=== PATIENT | female | born 1970 | race Caucasian/White ===

== ENCOUNTER 2023-01-16 14:04 | Inpatient (IN) | payer OTHER ==
[~2023-01-16] VITALS: Ht 165.1 cm; Wt 145.6 kg
[2023-01-16 14:00] VITALS: BP 134/80
[2023-01-16] MEDS ORDERED: EPINEPHrine HCL 250 ML IV ONE (14:17)
[2023-01-16 15:09] LABS: Hemoglobin 10.6 g/dL (12.2-16.2)
[2023-01-16 15:12] LABS: Hematocrit 35.2 % (36.0-46.0); Mean Corpuscular Hemoglobin 24.2 pg (28.0-32.0); Mean Corpuscular Hgb Conc. 30.1 g/dL (32.0-36.0); Mean Corpuscular Volume 80.5 fL (80.0-100.0); Red Blood Cells 4.38 10^6/uL (4.0-5.20); Red Cell Distribution Width 16.1 % (11.8-14.3); White Blood Cell 13.4 10^3/uL (4.4-10.8)
[2023-01-16 15:22] LABS: Basophils % (manual) 0 (0.0-2.0); Blast Cells 0; Eosinophils % (manual) 0 (0-7); Metamyelocytes % 0; Promyelocytes % 0; Reactive Lymphocytes 0
[2023-01-16 15:27] LABS: Albumin 2.8 g/dL (3.4-5.0); Calcium 7.2 mg/dL (8.5-10.1); Magnesium 2.5 mg/dL (1.6-2.6)
[2023-01-16 15:32] LABS: Bilirubin, Total 0.6 mg/dL (0.2-1.0); Total Protein 5.9 g/dL (6.4-8.2)
[2023-01-16 15:40] LABS: INR 1.93 (0.9-1.15)
[2023-01-16 15:42] LABS: Partial Thromboplastin Time 74.3 sec (24.6-33.4)
[2023-01-16 15:43] LABS: Urine Bacteria FEW /hpf (None Seen); Urine Blood 3+ /uL (Negative); Urine Hyaline Cast FEW /lpf (0 - 2); Urine Mucus FEW (None Seen); Urine Specific Gravity 1.006 (1.001-1.035); Urine WBC 12 /hpf (0 - 5)
[2023-01-16] MEDS ORDERED: SODIUM BICARBONATE 8.4 % INJ 50ML VIAL IV ONE (15:45)
[2023-01-16] MEDS ORDERED: SODIUM BICARBONATE 50ML VIAL 50 ML in SOD CHL 0.45% 1,000 ML IV ONE (15:45)
[2023-01-16] MEDS: EPINEPHrine HCL 250 ML IV SCH (16:07)
[2023-01-16] MEDS: DOPamine 1600MCG/ML D5W 250 ML IV SCH (16:10)
[2023-01-16 16:15] LABS: BUN/Creatinine Ratio 4.2
[2023-01-16 16:16] LABS: Alcohol, Urine < 3.0 mg/dL (0-10); Amphetamine Screen, Urine NEGATIVE (NEGATIVE); Barbiturate Scree,Urine NEGATIVE (NEGATIVE); Benzodiazephine Screen, Urine NEGATIVE (NEGATIVE); Cannabinoid Screen, Urine NEGATIVE (NEGATIVE); Cocaine Screen, Urine NEGATIVE (NEGATIVE); Opiate Scree,Urine NEGATIVE (NEGATIVE); Phencyclidine Screen, Urine NEGATIVE (NEGATIVE)
[2023-01-16 16:39] LABS: Band Neutrophils % (manual) 32; Lymphocytes % (manual) 14 (10.0-50.0); Monocytes % (manual) 10 (0-12); Myelocytes % 1
[2023-01-16] MEDS ORDERED: levoFLOXacin 750MG 150 ML IV ONE (16:45)
[2023-01-16] MEDS ORDERED: IOHEXOL 350 MG/ML 100ML IJ ONE (16:49)
[2023-01-16] MEDS ORDERED: SODIUM CHL 3% 500 ML IV ONE (17:00)
[2023-01-16] MEDS ORDERED: NITROGLYCERIN 0.4 MG SL TAB SL PRN (17:15)
[2023-01-16] MEDS ORDERED: MORPHINE SULFATE INJ 2 MG/ml SYRG IV PRN (17:15)
[2023-01-16] MEDS ORDERED: PANTOPRAZOLE 40 MG/10 ML VIAL INJ IV ONE (17:15)
[2023-01-16 17:30] LABS: Lactic Acid w/Reflex 11.9 mmol/L (0.4-2.0)
[2023-01-16 17:45] LABS: Cholesterol 110 mg/dL (< 200)
[2023-01-16 17:47] LABS: HDL Cholesterol 68 mg/dL (40-59); LDL Cholesterol 47 mg/dL (< 100); Triglycerides 66 mg/dL (< 150)
[2023-01-16 18:46] VITALS: BP 95/43
[2023-01-16] MEDS: NOREPINEPHRINE 8 MG/250ML KIT 250 ML IV SCH (18:46)
[2023-01-16] MEDS: MIDAZOLAM DRIP 50 mg/50mL 50 ML IV SCH (18:47)
[2023-01-16] MEDS ORDERED: VANCOMYCIN PER PHARMACY 0 MG IV SCH (19:30)
[2023-01-16 20:01] VITALS: BP 102/64
[2023-01-16] MEDS: VANCOMYCIN 1GM/250ML 250 ML IV SCH (21:42)
[2023-01-16 22:10] VITALS: BP 122/56
[2023-01-16 22:23] LABS: BUN/Creatinine Ratio 14.1; Calcium 6.9 mg/dL (8.5-10.1); Potassium 3.6 mmol/L (3.5-5.1)
[2023-01-17] VITALS (12 sets, daily range): BP systolic 101–118; BP diastolic 46–56
[2023-01-17 01:01] LABS: BUN/Creatinine Ratio 12.3; Calcium 6.9 mg/dL (8.5-10.1); Potassium 3.9 mmol/L (3.5-5.1)
[2023-01-17] MEDS: DOPamine 1600MCG/ML D5W 250 ML IV SCH ×2 (01:38→12:38)
[2023-01-17] MEDS: ACETAMINOPHEN 650 MG RECT SUPP PR PRN ×3 (01:39→17:40)
[2023-01-17] MEDS ORDERED: SODIUM CHL 3% 500 ML IV ONE ×2 (03:00)
[2023-01-17 06:16] LABS: Eosinophils # (auto) 0 10 ^3/uL (0-0.8); Nucleated Red Blood Cells % 0.1 %
[2023-01-17 06:18] LABS: Basophils # (auto) 0.1 10 ^3/uL (0-0.2); Basophils % (auto) 0.2 % (0.0-2.0); Hematocrit 34.2 % (36.0-46.0); Hemoglobin 11.3 g/dL (12.2-16.2); Lymphocytes # (auto) 0.6 10 ^3/uL (0.4-5.4); Lymphocytes % (auto) 2.6 % (10.0-50.0); Mean Corpuscular Hgb Conc. 33.1 g/dL (32.0-36.0); Mean Corpuscular Volume 75.6 fL (80.0-100.0); Monocytes # (auto) 1.4 10 ^3/uL (0-1.3); Monocytes % (auto) 6.1 % (0.0-12.0); Neutrophils # (auto) 20.8 10 ^3/uL (1.6-8.6); Neutrophils % (auto) 91.1 % (37.0-80.0); Red Blood Cells 4.53 10^6/uL (4.0-5.20); White Blood Cell 22.9 10^3/uL (4.4-10.8)
[2023-01-17 06:44] LABS: Potassium 3.8 mmol/L (3.5-5.1)
[2023-01-17 06:59] LABS: Albumin 2.6 g/dL (3.4-5.0); BUN/Creatinine Ratio 14.9; Bilirubin, Total 0.6 mg/dL (0.2-1.0); Calcium 6.8 mg/dL (8.5-10.1); Total Protein 5.6 g/dL (6.4-8.2)
[2023-01-17] MEDS: VANCOMYCIN 1GM/250ML 250 ML IV SCH ×2 (07:02→16:39)
[2023-01-17] MEDS: PANTOPRAZOLE 40 MG/10 ML VIAL INJ IV SCH (10:51)
[2023-01-17] MEDS: CIPROFLOXACIN 400MG/200ML 200 ML IV SCH ×2 (10:51→22:31)
[2023-01-17 13:06] LABS: BUN/Creatinine Ratio 13.3; Calcium 6.6 mg/dL (8.5-10.1)
[2023-01-17 13:24] LABS: Potassium 4.6 mmol/L (3.5-5.1)
[2023-01-17] MEDS ORDERED: DIGO0.25 PO (13:27)
[2023-01-17] MEDS ORDERED: AMIO200T33 PO (13:27)
[2023-01-17] MEDS ORDERED: LISI20TA28 PO (13:30)
[2023-01-17] MEDS ORDERED: CARV12.544 PO (13:30)
[2023-01-17] MEDS ORDERED: SPIR25TA8 PO (13:30)
[2023-01-17] MEDS ORDERED: D5W 5% 500 ML IV ONE (14:30)
[2023-01-17] MEDS: EPINEPHrine HCL 250 ML IV SCH (14:45)
[2023-01-17] MEDS ORDERED: ATROPINE SULF 1 MG/10ml SYR IV ONE (16:48)
[2023-01-17] MEDS ORDERED: DOPamine 1600mCg/ml 400MG/250ml NSorD5 KIT/BAG IV ONE (16:48)
[2023-01-17] MEDS ORDERED: EPINEPHrine HCL 1 MG/10 ML SYRG IV ONE (16:48)
[2023-01-17] MEDS ORDERED: DEXTROSE (50%) 50ML SYRG IV ONE (16:48)
[2023-01-17 18:35] LABS: BUN/Creatinine Ratio 14.8; Calcium 6.1 mg/dL (8.5-10.1); Potassium 3.8 mmol/L (3.5-5.1)
[2023-01-17] MEDS: NOREPINEPHRINE 8 MG/250ML KIT 250 ML IV SCH (18:53)
[2023-01-17] MEDS: MIDAZOLAM DRIP 50 mg/50mL 50 ML IV SCH (18:53)
[2023-01-18] VITALS (13 sets, daily range): BP systolic 94–112; BP diastolic 47–66
[2023-01-18 01:34] LABS: BUN/Creatinine Ratio 16.4; Calcium 6.7 mg/dL (8.5-10.1)
[2023-01-18] MEDS ORDERED: SODIUM CHL 3% 500 ML IV ONE (02:45)
[2023-01-18] MEDS: VANCOMYCIN 1GM/250ML 250 ML IV SCH ×2 (03:01→15:21)
[2023-01-18] MEDS: DOPamine 1600MCG/ML D5W 250 ML IV SCH ×3 (03:21→21:00)
[2023-01-18] MEDS: ACETAMINOPHEN 650 MG RECT SUPP PR PRN (09:12)
[2023-01-18] MEDS: CIPROFLOXACIN 400MG/200ML 200 ML IV SCH ×2 (10:03→22:15)
[2023-01-18] MEDS: PANTOPRAZOLE 40 MG/10 ML VIAL INJ IV SCH (10:03)
[2023-01-18] MEDS ORDERED: AMIODARONE HCL 200 MG TAB PO SCH (11:45)
[2023-01-18] MEDS ORDERED: FUROSEMIDE 40 MG/4 ML VIAL IV ONE (11:45)
[2023-01-18] MEDS ORDERED: METOPROLOL TARTRATE 25 MG TAB PO SCH (11:45)
[2023-01-18] MEDS: SODIUM CHLORIDE 0.9% 1,000 ML IV SCH ×2 (12:43→22:47)
[2023-01-18] MEDS: EPINEPHrine HCL 250 ML IV SCH (13:12)
[2023-01-18 13:24] LABS: BUN/Creatinine Ratio 16.1; Calcium 6.6 mg/dL (8.5-10.1); Potassium 3.3 mmol/L (3.5-5.1)
[2023-01-18 14:18] LABS: Urine Blood 3+ /uL (Negative); Urine Specific Gravity 1.013 (1.001-1.035)
[2023-01-18 14:43] LABS: Protein, Urine 46.5 mg/dL (0.0-11.9)
[2023-01-18 17:43] LABS: BUN/Creatinine Ratio 16.4; Calcium 6.8 mg/dL (8.5-10.1); Potassium 3.3 mmol/L (3.5-5.1)
[2023-01-18] MEDS: MIDAZOLAM DRIP 50 mg/50mL 50 ML IV SCH (18:30)
[2023-01-18] MEDS: NOREPINEPHRINE 8 MG/250ML KIT 250 ML IV SCH (18:35)
[2023-01-18 18:58] LABS: Calcium 6.9 mg/dL (8.5-10.1); Potassium 3.3 mmol/L (3.5-5.1)
[2023-01-19] VITALS (69 sets, daily range): BP systolic 92–128; BP diastolic 45–78
[2023-01-19] MEDS: VANCOMYCIN 1GM/250ML 250 ML IV SCH ×2 (03:06→15:40)
[2023-01-19 06:34] LABS: Anion Gap 7 (5-15); BUN/Creatinine Ratio 15.3; Blood Urea Nitrogen 13 mg/dL (7-18); Calcium 7.3 mg/dL (8.5-10.1); Carbon Dioxide 24 mmol/L (21-32); Chloride 101 mmol/L (98-107); GFR African American 91 mL/min; GFR Non-African American 75 mL/min; Glucose 169 mg/dL (74-106); Magnesium 2.1 mg/dL (1.6-2.6); Potassium 3.4 mmol/L (3.5-5.1); Sodium 132 mmol/L (136-145)
[2023-01-19 06:38] LABS: Alanine Aminotransferase 84 U/L (13-56); Alkaline Phosphatase 33 U/L (45-117); Aspartate Aminotransferase 87 U/L (15-37); Bilirubin, Total 0.7 mg/dL (0.2-1.0); Total Protein 5.1 g/dL (6.4-8.2)
[2023-01-19 07:37] LABS: Basophils # (auto) 0.1 10 ^3/uL (0-0.2); Basophils % (auto) 0.5 % (0.0-2.0); Eosinophils # (auto) 0 10 ^3/uL (0-0.8); Eosinophils % (auto) 0.1 % (0.0-7.0); Hematocrit 30.8 % (36.0-46.0); Hemoglobin 10.1 g/dL (12.2-16.2); Lymphocytes # (auto) 0.7 10 ^3/uL (0.4-5.4); Lymphocytes % (auto) 5.2 % (10.0-50.0); Mean Corpuscular Hemoglobin 25.2 pg (28.0-32.0); Mean Corpuscular Hgb Conc. 32.6 g/dL (32.0-36.0); Mean Corpuscular Volume 77.1 fL (80.0-100.0); Monocytes # (auto) 1.1 10 ^3/uL (0-1.3); Monocytes % (auto) 7.8 % (0.0-12.0); Neutrophils # (auto) 11.8 10 ^3/uL (1.6-8.6); Neutrophils % (auto) 86.4 % (37.0-80.0); Nucleated Red Blood Cells % 0.1 %; Red Cell Distribution Width 16.9 % (11.8-14.3); White Blood Cell 13.7 10^3/uL (4.4-10.8)
[2023-01-19] MEDS: DOPamine 1600MCG/ML D5W 250 ML IV SCH ×3 (07:51→22:10)
[2023-01-19] MEDS: NOREPINEPHRINE 8 MG/250ML KIT 250 ML IV SCH (09:27)
[2023-01-19] MEDS: SODIUM CHLORIDE 0.9% 1,000 ML IV SCH (09:31)
[2023-01-19] MEDS: CIPROFLOXACIN 400MG/200ML 200 ML IV SCH (09:49)
[2023-01-19] MEDS: PANTOPRAZOLE 40 MG/10 ML VIAL INJ IV SCH (09:49)
[2023-01-19] MEDS: D5W 5% 1,000 ML IV SCH (11:07)
[2023-01-19] MEDS: EPINEPHrine HCL 250 ML IV SCH (14:45)
[2023-01-19 16:17] LABS: Anion Gap 5 (5-15); Carbon Dioxide 27 mmol/L (21-32); Chloride 109 mmol/L (98-107); Potassium 3.1 mmol/L (3.5-5.1); Sodium 141 mmol/L (136-145)
[2023-01-19 16:18] LABS: BUN/Creatinine Ratio 12.1; Blood Urea Nitrogen 11 mg/dL (7-18); Calcium 8.2 mg/dL (8.5-10.1); GFR African American 84 mL/min; GFR Non-African American 69 mL/min; Glucose 163 mg/dL (74-106)
[2023-01-19] MEDS: POTASSIUM CHL 20MEQ/100ML 100 ML IV SCH ×3 (17:30→22:29)
[2023-01-19] MEDS: MIDAZOLAM DRIP 50 mg/50mL 50 ML IV SCH (18:30)
[2023-01-19] MEDS: CEFEPIME 2 GM in SODIUM CHL 0.9% 50 ML IV SCH (21:52)
[2023-01-19] MEDS ORDERED: CIPROFLOXACIN 400MG/200ML 200 ML IV SCH (22:00)
[2023-01-20] VITALS (109 sets, daily range): BP systolic 75–123; BP diastolic 45–77
[2023-01-20] MEDS: VANCOMYCIN 1GM/250ML 250 ML IV SCH ×2 (02:31→14:35)
[2023-01-20] MEDS: NOREPINEPHRINE 8 MG/250ML KIT 250 ML IV SCH ×2 (03:05→12:42)
[2023-01-20 04:26] LABS: Basophils # (auto) 0 10 ^3/uL (0-0.2); Eosinophils # (auto) 0.2 10 ^3/uL (0-0.8); Eosinophils % (auto) 1.3 % (0.0-7.0); Mean Corpuscular Volume 79.9 fL (80.0-100.0); Monocytes # (auto) 1.1 10 ^3/uL (0-1.3); Neutrophils # (auto) 9.5 10 ^3/uL (1.6-8.6); Nucleated Red Blood Cells % 0.1 %
[2023-01-20 04:28] LABS: Basophils % (auto) 0.2 % (0.0-2.0); Hematocrit 31.7 % (36.0-46.0); Lymphocytes # (auto) 1.1 10 ^3/uL (0.4-5.4); Lymphocytes % (auto) 9.1 % (10.0-50.0); Mean Corpuscular Hemoglobin 25.1 pg (28.0-32.0); Mean Corpuscular Hgb Conc. 31.4 g/dL (32.0-36.0); Monocytes % (auto) 9.2 % (0.0-12.0); Neutrophils % (auto) 80.2 % (37.0-80.0); Red Blood Cells 3.97 10^6/uL (4.0-5.20); Red Cell Distribution Width 17.1 % (11.8-14.3); White Blood Cell 11.8 10^3/uL (4.4-10.8)
[2023-01-20 04:41] LABS: BUN/Creatinine Ratio 10.6; Calcium 8.8 mg/dL (8.5-10.1); Magnesium 2.7 mg/dL (1.6-2.6); Potassium 3.8 mmol/L (3.5-5.1)
[2023-01-20] MEDS: CEFEPIME 2 GM in SODIUM CHL 0.9% 50 ML IV SCH ×3 (05:35→21:35)
[2023-01-20] MEDS: ENOXAPARIN SOD 40 MG/0.4 ML SYRINGE SC SCH ×2 (09:13→21:36)
[2023-01-20] MEDS: PANTOPRAZOLE 40 MG/10 ML VIAL INJ IV SCH (09:13)
[2023-01-20] MEDS: FREE WATER NG SCH ×4 (10:00→21:35)
[2023-01-20] MEDS: D5W 5% 1,000 ML IV SCH ×2 (11:30→12:55)
[2023-01-20] MEDS: DOPamine 1600MCG/ML D5W 250 ML IV SCH (16:24)
[2023-01-20] MEDS: MIDAZOLAM DRIP 50 mg/50mL 50 ML IV SCH (18:30)
[2023-01-21] VITALS (105 sets, daily range): BP systolic 87–123; BP diastolic 37–70
[2023-01-21] MEDS: FREE WATER NG SCH ×6 (02:00→21:38)
[2023-01-21] MEDS: D5W 5% 1,000 ML IV SCH ×3 (02:15→15:35)
[2023-01-21] MEDS: VANCOMYCIN 1GM/250ML 250 ML IV SCH ×2 (03:11→14:59)
[2023-01-21] MEDS: DOPamine 1600MCG/ML D5W 250 ML IV SCH ×2 (03:15→14:06)
[2023-01-21 04:30] LABS: Basophils # (auto) 0 10 ^3/uL (0-0.2); Basophils % (auto) 0.4 % (0.0-2.0); Eosinophils # (auto) 0.5 10 ^3/uL (0-0.8); Eosinophils % (auto) 4.7 % (0.0-7.0); Hematocrit 29.6 % (36.0-46.0); Hemoglobin 9.4 g/dL (12.2-16.2); Lymphocytes # (auto) 1.3 10 ^3/uL (0.4-5.4); Lymphocytes % (auto) 11.1 % (10.0-50.0); Mean Corpuscular Hemoglobin 25.4 pg (28.0-32.0); Mean Corpuscular Hgb Conc. 31.6 g/dL (32.0-36.0); Mean Corpuscular Volume 80.4 fL (80.0-100.0); Monocytes # (auto) 1.2 10 ^3/uL (0-1.3); Monocytes % (auto) 10.5 % (0.0-12.0); Neutrophils # (auto) 8.2 10 ^3/uL (1.6-8.6); Neutrophils % (auto) 73.3 % (37.0-80.0); Nucleated Red Blood Cells % 0.1 %; Red Blood Cells 3.69 10^6/uL (4.0-5.20); Red Cell Distribution Width 17.4 % (11.8-14.3); White Blood Cell 11.3 10^3/uL (4.4-10.8)
[2023-01-21 04:43] LABS: Albumin 1.7 g/dL (3.4-5.0); BUN/Creatinine Ratio 9.3; Calcium 8.3 mg/dL (8.5-10.1); Magnesium 2.6 mg/dL (1.6-2.6); Potassium 3.8 mmol/L (3.5-5.1)
[2023-01-21 04:46] LABS: Bilirubin, Total 0.6 mg/dL (0.2-1.0); Total Protein 5.2 g/dL (6.4-8.2)
[2023-01-21] MEDS: CEFEPIME 2 GM in SODIUM CHL 0.9% 50 ML IV SCH ×3 (05:54→21:38)
[2023-01-21] MEDS: PANTOPRAZOLE 40 MG/10 ML VIAL INJ IV SCH (09:09)
[2023-01-21] MEDS: ENOXAPARIN SOD 40 MG/0.4 ML SYRINGE SC SCH ×2 (09:10→21:39)
[2023-01-21] MEDS: MIDAZOLAM DRIP 50 mg/50mL 50 ML IV SCH (18:21)
[2023-01-21] MEDS: NOREPINEPHRINE 8 MG/250ML KIT 250 ML IV SCH ×2 (18:21→19:35)
[2023-01-22] VITALS (103 sets, daily range): BP systolic 82–148; BP diastolic 35–122
[2023-01-22] MEDS: D5W 5% 1,000 ML IV SCH ×2 (00:11→13:00)
[2023-01-22] MEDS: FREE WATER NG SCH ×6 (01:54→22:00)
[2023-01-22] MEDS: DOPamine 1600MCG/ML D5W 250 ML IV SCH ×3 (02:04→20:00)
[2023-01-22 04:32] LABS: Basophils # (auto) 0 10 ^3/uL (0-0.2); Basophils % (auto) 0.4 % (0.0-2.0); Hematocrit 29.6 % (36.0-46.0); Lymphocytes # (auto) 1.3 10 ^3/uL (0.4-5.4); Mean Corpuscular Hgb Conc. 30.6 g/dL (32.0-36.0)
[2023-01-22 04:34] LABS: Eosinophils # (auto) 0.7 10 ^3/uL (0-0.8); Lymphocytes % (auto) 11.4 % (10.0-50.0); Mean Corpuscular Hemoglobin 25.1 pg (28.0-32.0); Mean Corpuscular Volume 82.2 fL (80.0-100.0); Monocytes % (auto) 9.1 % (0.0-12.0); Neutrophils # (auto) 8.2 10 ^3/uL (1.6-8.6); Neutrophils % (auto) 73.1 % (37.0-80.0); Nucleated Red Blood Cells % 0.1 %; Red Cell Distribution Width 17.7 % (11.8-14.3); White Blood Cell 11.2 10^3/uL (4.4-10.8)
[2023-01-22 04:55] LABS: BUN/Creatinine Ratio 11.9; Calcium 8.4 mg/dL (8.5-10.1); Magnesium 2.8 mg/dL (1.6-2.6)
[2023-01-22] MEDS: CEFEPIME 2 GM in SODIUM CHL 0.9% 50 ML IV SCH ×2 (06:09→16:48)
[2023-01-22] MEDS: ENOXAPARIN SOD 40 MG/0.4 ML SYRINGE SC SCH ×2 (09:41→22:00)
[2023-01-22] MEDS: PANTOPRAZOLE 40 MG/10 ML VIAL INJ IV SCH (09:41)
[2023-01-22] MEDS: NOREPINEPHRINE 8 MG/250ML KIT 250 ML IV SCH ×2 (14:38→20:00)
[2023-01-22] MEDS: VANCOMYCIN 1GM/250ML 250 ML IV SCH (14:50)
[2023-01-22] MEDS: MIDAZOLAM DRIP 50 mg/50mL 50 ML IV SCH (18:30)
[2023-01-23] VITALS (105 sets, daily range): BP systolic 70–137; BP diastolic 21–69
[2023-01-23] MEDS: FREE WATER NG SCH ×5 (02:00→18:17)
[2023-01-23] MEDS: D5W 5% 1,000 ML IV SCH ×2 (03:00→15:28)
[2023-01-23 03:34] LABS: Hemoglobin 8.9 g/dL (12.2-16.2); Monocytes # (auto) 0.8 10 ^3/uL (0-1.3); White Blood Cell 8.2 10^3/uL (4.4-10.8)
[2023-01-23 03:37] LABS: Basophils # (auto) 0.1 10 ^3/uL (0-0.2); Basophils % (auto) 1.1 % (0.0-2.0); Eosinophils # (auto) 0.5 10 ^3/uL (0-0.8); Hematocrit 28.7 % (36.0-46.0); Lymphocytes % (auto) 12.7 % (10.0-50.0); Mean Corpuscular Hemoglobin 25.7 pg (28.0-32.0); Mean Corpuscular Hgb Conc. 31.1 g/dL (32.0-36.0); Mean Corpuscular Volume 82.8 fL (80.0-100.0); Monocytes % (auto) 9.8 % (0.0-12.0); Neutrophils # (auto) 5.8 10 ^3/uL (1.6-8.6); Neutrophils % (auto) 70.4 % (37.0-80.0); Nucleated Red Blood Cells % 0.1 %; Red Blood Cells 3.47 10^6/uL (4.0-5.20); Red Cell Distribution Width 18.4 % (11.8-14.3)
[2023-01-23 04:03] LABS: BUN/Creatinine Ratio 13.4; Calcium 7.8 mg/dL (8.5-10.1); Magnesium 2.4 mg/dL (1.6-2.6); Potassium 3.8 mmol/L (3.5-5.1)
[2023-01-23] MEDS: CEFEPIME 2 GM in SODIUM CHL 0.9% 50 ML IV SCH ×2 (05:28→18:16)
[2023-01-23] MEDS: DOPamine 1600MCG/ML D5W 250 ML IV SCH ×2 (09:30→19:51)
[2023-01-23] MEDS: PANTOPRAZOLE 40 MG/10 ML VIAL INJ IV SCH (09:42)
[2023-01-23] MEDS: ENOXAPARIN SOD 40 MG/0.4 ML SYRINGE SC SCH ×2 (09:43→23:25)
[2023-01-23] MEDS: MIDAZOLAM DRIP 50 mg/50mL 50 ML IV SCH (18:30)
[2023-01-23] MEDS: NOREPINEPHRINE 8 MG/250ML KIT 250 ML IV SCH (18:54)
[2023-01-24] VITALS (104 sets, daily range): BP systolic 53–132; BP diastolic 28–72
[2023-01-24] MEDS: VANCOMYCIN 1GM/250ML 250 ML IV SCH (02:49)
[2023-01-24 03:51] LABS: Basophils # (auto) 0.1 10 ^3/uL (0-0.2); Eosinophils # (auto) 0.3 10 ^3/uL (0-0.8); Lymphocytes # (auto) 1.1 10 ^3/uL (0.4-5.4); Lymphocytes % (auto) 15.6 % (10.0-50.0); Mean Corpuscular Hemoglobin 25.4 pg (28.0-32.0); Mean Corpuscular Hgb Conc. 30.9 g/dL (32.0-36.0); Mean Corpuscular Volume 82.2 fL (80.0-100.0); Monocytes # (auto) 0.6 10 ^3/uL (0-1.3); Monocytes % (auto) 8.4 % (0.0-12.0); Neutrophils # (auto) 4.7 10 ^3/uL (1.6-8.6); Nucleated Red Blood Cells % 0.1 %; Red Blood Cells 3.53 10^6/uL (4.0-5.20); Red Cell Distribution Width 18.5 % (11.8-14.3); White Blood Cell 6.7 10^3/uL (4.4-10.8)
[2023-01-24 04:13] LABS: Calcium 8.3 mg/dL (8.5-10.1); Potassium 3.8 mmol/L (3.5-5.1)
[2023-01-24 04:15] LABS: BUN/Creatinine Ratio 16.3
[2023-01-24] MEDS: D5W 5% 1,000 ML IV SCH ×2 (05:00→21:25)
[2023-01-24] MEDS: FREE WATER NG SCH ×4 (05:44→17:48)
[2023-01-24] MEDS: CEFEPIME 2 GM in SODIUM CHL 0.9% 50 ML IV SCH ×2 (05:44→17:48)
[2023-01-24] MEDS: DOPamine 1600MCG/ML D5W 250 ML IV SCH ×2 (09:11→17:48)
[2023-01-24] MEDS: ENOXAPARIN SOD 40 MG/0.4 ML SYRINGE SC SCH ×2 (10:37→21:32)
[2023-01-24] MEDS: PANTOPRAZOLE 40 MG/10 ML VIAL INJ IV SCH (10:37)
[2023-01-24] MEDS: MIDAZOLAM DRIP 50 mg/50mL 50 ML IV SCH (17:48)
[2023-01-25] VITALS (105 sets, daily range): BP systolic 77–132; BP diastolic 33–70
[2023-01-25 04:39] LABS: Potassium 3.4 mmol/L (3.5-5.1)
[2023-01-25 04:40] LABS: Basophils # (auto) 0 10 ^3/uL (0-0.2); Eosinophils # (auto) 0.3 10 ^3/uL (0-0.8); Lymphocytes # (auto) 0.9 10 ^3/uL (0.4-5.4); Monocytes # (auto) 0.5 10 ^3/uL (0-1.3)
[2023-01-25 04:43] LABS: Basophils % (auto) 0.4 % (0.0-2.0); Eosinophils % (auto) 4.7 % (0.0-7.0); Hematocrit 26.2 % (36.0-46.0); Lymphocytes % (auto) 14.3 % (10.0-50.0); Mean Corpuscular Hemoglobin 25.3 pg (28.0-32.0); Mean Corpuscular Hgb Conc. 30.5 g/dL (32.0-36.0); Mean Corpuscular Volume 82.9 fL (80.0-100.0); Monocytes % (auto) 8.1 % (0.0-12.0); Neutrophils # (auto) 4.5 10 ^3/uL (1.6-8.6); Neutrophils % (auto) 72.5 % (37.0-80.0); Red Blood Cells 3.16 10^6/uL (4.0-5.20); Red Cell Distribution Width 18.5 % (11.8-14.3); White Blood Cell 6.3 10^3/uL (4.4-10.8)
[2023-01-25 04:46] LABS: Albumin 1.1 g/dL (3.4-5.0); BUN/Creatinine Ratio 15.4; Bilirubin, Total 1.2 mg/dL (0.2-1.0); Calcium 7.1 mg/dL (8.5-10.1); Magnesium 2.1 mg/dL (1.6-2.6); Phosphorus 2.5 mg/dL (2.5-4.90); Total Protein 4.5 g/dL (6.4-8.2)
[2023-01-25] MEDS: CEFEPIME 2 GM in SODIUM CHL 0.9% 50 ML IV SCH ×2 (05:45→18:14)
[2023-01-25] MEDS: FREE WATER NG SCH ×2 (05:45)
[2023-01-25] MEDS: DOPamine 1600MCG/ML D5W 250 ML IV SCH ×2 (05:56→22:33)
[2023-01-25] MEDS ORDERED: VANCOMYCIN 1GM/250ML 250 ML IV SCH (09:00)
[2023-01-25] MEDS: PANTOPRAZOLE 40 MG/10 ML VIAL INJ IV SCH (10:50)
[2023-01-25] MEDS: D5W/SOD CHL 0.45% 1,000 ML IV SCH ×2 (10:50→23:50)
[2023-01-25] MEDS: ENOXAPARIN SOD 40 MG/0.4 ML SYRINGE SC SCH ×2 (10:51→22:34)
[2023-01-25] MEDS: MIDAZOLAM DRIP 50 mg/50mL 50 ML IV SCH (18:30)
[2023-01-25] MEDS: NOREPINEPHRINE 8 MG/250ML KIT 250 ML IV SCH (22:33)
[2023-01-25 22:49] LABS: Urine Bacteria FEW /hpf (None Seen); Urine Blood 3+ /uL (Negative); Urine Specific Gravity 1.006 (1.001-1.035); Urine WBC 7 /hpf (0 - 5)
[2023-01-25 22:55] LABS: INR 1.11 (0.9-1.15)
[2023-01-25 23:01] LABS: Albumin 1.4 g/dL (3.4-5.0); BUN/Creatinine Ratio 15.6; Bilirubin, Direct 0.2 mg/dL (0-0.2); Calcium 8.5 mg/dL (8.5-10.1); Magnesium 2.5 mg/dL (1.6-2.6); Phosphorus 3.1 mg/dL (2.5-4.90); Potassium 4.1 mmol/L (3.5-5.1)
[2023-01-25 23:06] LABS: Bilirubin, Total 0.4 mg/dL (0.2-1.0); Total Protein 5.3 g/dL (6.4-8.2)
[2023-01-25 23:07] LABS: Lymphocytes % (auto) 13.9 % (10.0-50.0); Neutrophils % (auto) 74.3 % (37.0-80.0); White Blood Cell 8.9 10^3/uL (4.4-10.8)
[2023-01-25 23:08] LABS: Basophils # (auto) 0.1 10 ^3/uL (0-0.2); Basophils % (auto) 0.8 % (0.0-2.0); Eosinophils # (auto) 0.4 10 ^3/uL (0-0.8); Eosinophils % (auto) 4.1 % (0.0-7.0); Hematocrit 29.6 % (36.0-46.0); Hemoglobin 9.2 g/dL (12.2-16.2); Lymphocytes # (auto) 1.2 10 ^3/uL (0.4-5.4); Mean Corpuscular Hemoglobin 25.1 pg (28.0-32.0); Mean Corpuscular Hgb Conc. 31.1 g/dL (32.0-36.0); Mean Corpuscular Volume 80.6 fL (80.0-100.0); Monocytes # (auto) 0.6 10 ^3/uL (0-1.3); Monocytes % (auto) 6.9 % (0.0-12.0); Neutrophils # (auto) 6.6 10 ^3/uL (1.6-8.6); Nucleated Red Blood Cells % 0.2 %; Red Blood Cells 3.68 10^6/uL (4.0-5.20)
[2023-01-26] VITALS (108 sets, daily range): BP systolic 1–146; BP diastolic 42–72
[2023-01-26] MEDS: DOPamine 1600MCG/ML D5W 250 ML IV SCH ×2 (02:36→18:47)
[2023-01-26 04:57] LABS: INR 1.13 (0.9-1.15)
[2023-01-26 05:08] LABS: Albumin 1.5 g/dL (3.4-5.0); BUN/Creatinine Ratio 15.8; Calcium 8.5 mg/dL (8.5-10.1); Magnesium 2.5 mg/dL (1.6-2.6); Potassium 3.8 mmol/L (3.5-5.1); Total Protein 5.3 g/dL (6.4-8.2)
[2023-01-26 05:12] LABS: Bilirubin, Direct 0.2 mg/dL (0-0.2); Bilirubin, Total 0.4 mg/dL (0.2-1.0); Phosphorus 3.5 mg/dL (2.5-4.90)
[2023-01-26 05:18] LABS: Urine Bacteria FEW /hpf (None Seen); Urine Blood 2+ /uL (Negative); Urine Specific Gravity 1.006 (1.001-1.035); Urine WBC 11 /hpf (0 - 5)
[2023-01-26 05:25] LABS: Basophils # (auto) 0 10 ^3/uL (0-0.2); Eosinophils # (auto) 0.4 10 ^3/uL (0-0.8); Eosinophils % (auto) 4.2 % (0.0-7.0); Monocytes # (auto) 0.8 10 ^3/uL (0-1.3)
[2023-01-26 05:27] LABS: Basophils % (auto) 0.4 % (0.0-2.0); Hematocrit 29.2 % (36.0-46.0); Hemoglobin 9.2 g/dL (12.2-16.2); Lymphocytes # (auto) 1.4 10 ^3/uL (0.4-5.4); Lymphocytes % (auto) 15.2 % (10.0-50.0); Mean Corpuscular Hemoglobin 25.6 pg (28.0-32.0); Mean Corpuscular Hgb Conc. 31.7 g/dL (32.0-36.0); Mean Corpuscular Volume 80.9 fL (80.0-100.0); Monocytes % (auto) 8.3 % (0.0-12.0); Neutrophils # (auto) 6.6 10 ^3/uL (1.6-8.6); Neutrophils % (auto) 71.9 % (37.0-80.0); Nucleated Red Blood Cells % 0.2 %; Red Cell Distribution Width 18.6 % (11.8-14.3); White Blood Cell 9.2 10^3/uL (4.4-10.8)
[2023-01-26] MEDS: CEFEPIME 2 GM in SODIUM CHL 0.9% 50 ML IV SCH ×2 (05:53→18:44)
[2023-01-26 09:37] LABS: Basophils # (auto) 0 10 ^3/uL (0-0.2); Eosinophils # (auto) 0.4 10 ^3/uL (0-0.8); Hemoglobin 9.1 g/dL (12.2-16.2); Mean Corpuscular Volume 80.7 fL (80.0-100.0); Nucleated Red Blood Cells % 0.1 %; White Blood Cell 8.7 10^3/uL (4.4-10.8)
[2023-01-26 09:40] LABS: Basophils % (auto) 0.5 % (0.0-2.0); Eosinophils % (auto) 4.6 % (0.0-7.0); Hematocrit 29.7 % (36.0-46.0); Lymphocytes # (auto) 1.1 10 ^3/uL (0.4-5.4); Lymphocytes % (auto) 12.6 % (10.0-50.0); Mean Corpuscular Hemoglobin 24.7 pg (28.0-32.0); Mean Corpuscular Hgb Conc. 30.6 g/dL (32.0-36.0); Monocytes # (auto) 0.8 10 ^3/uL (0-1.3); Neutrophils # (auto) 6.4 10 ^3/uL (1.6-8.6); Neutrophils % (auto) 73.3 % (37.0-80.0); Red Blood Cells 3.68 10^6/uL (4.0-5.20); Red Cell Distribution Width 18.7 % (11.8-14.3)
[2023-01-26 09:58] LABS: INR 1.15 (0.9-1.15)
[2023-01-26] MEDS ORDERED: SODIUM BICARBONATE 8.4 % INJ 50ML VIAL IV ONE (10:00)
[2023-01-26 10:14] LABS: Potassium 4.1 mmol/L (3.5-5.1)
[2023-01-26] MEDS: PANTOPRAZOLE 40 MG/10 ML VIAL INJ IV SCH (10:17)
[2023-01-26] MEDS: ENOXAPARIN SOD 40 MG/0.4 ML SYRINGE SC SCH ×2 (10:17→22:00)
[2023-01-26 10:18] LABS: Urine WBC None Seen /hpf (0 - 5)
[2023-01-26 10:24] LABS: Albumin 1.5 g/dL (3.4-5.0); BUN/Creatinine Ratio 16.4; Bilirubin, Direct 0.2 mg/dL (0-0.2); Bilirubin, Total 0.4 mg/dL (0.2-1.0); Magnesium 2.6 mg/dL (1.6-2.6); Phosphorus 3.7 mg/dL (2.5-4.90); Total Protein 4.4 g/dL (6.4-8.2)
[2023-01-26 10:54] LABS: Calcium 8.5 mg/dL (8.5-10.1)
[2023-01-26 10:57] LABS: Urine Bacteria NONE SEEN /hpf (None Seen); Urine Blood 2+ /uL (Negative); Urine Specific Gravity 1.006 (1.001-1.035)
[2023-01-26] MEDS: D5W/SOD CHL 0.45% 1,000 ML IV SCH (13:42)
[2023-01-26 15:20] LABS: Basophils # (auto) 0.1 10 ^3/uL (0-0.2); Eosinophils # (auto) 0.4 10 ^3/uL (0-0.8); Hemoglobin 9.3 g/dL (12.2-16.2); Lymphocytes # (auto) 1.2 10 ^3/uL (0.4-5.4)
[2023-01-26 15:22] LABS: Basophils % (auto) 0.7 % (0.0-2.0); Eosinophils % (auto) 4.8 % (0.0-7.0); Hematocrit 30.7 % (36.0-46.0); Lymphocytes % (auto) 14.2 % (10.0-50.0); Mean Corpuscular Hemoglobin 24.3 pg (28.0-32.0); Mean Corpuscular Hgb Conc. 30.3 g/dL (32.0-36.0); Mean Corpuscular Volume 80.1 fL (80.0-100.0); Monocytes # (auto) 0.6 10 ^3/uL (0-1.3); Monocytes % (auto) 7.3 % (0.0-12.0); Neutrophils # (auto) 6.4 10 ^3/uL (1.6-8.6); Nucleated Red Blood Cells % 0.1 %; Red Blood Cells 3.83 10^6/uL (4.0-5.20); Red Cell Distribution Width 18.7 % (11.8-14.3); White Blood Cell 8.8 10^3/uL (4.4-10.8)
[2023-01-26 15:32] LABS: Urine Amorphous Crystal MOD /hpf (None Seen); Urine Bacteria FEW /hpf (None Seen); Urine Blood 3+ /uL (Negative); Urine Mucus FEW (None Seen); Urine Specific Gravity 1.006 (1.001-1.035); Urine WBC 6 /hpf (0 - 5)
[2023-01-26 16:00] LABS: Albumin 1.4 g/dL (3.4-5.0); Bilirubin, Direct 0.2 mg/dL (0-0.2); Bilirubin, Total 0.4 mg/dL (0.2-1.0); Calcium 8.7 mg/dL (8.5-10.1); Magnesium 2.5 mg/dL (1.6-2.6); Phosphorus 3.7 mg/dL (2.5-4.90); Total Protein 5.5 g/dL (6.4-8.2)
[2023-01-26 16:10] LABS: Potassium 3.7 mmol/L (3.5-5.1)
[2023-01-26 16:27] LABS: INR 1.15 (0.9-1.15)
[2023-01-26] MEDS: NOREPINEPHRINE 8 MG/250ML KIT 250 ML IV SCH (16:37)
[2023-01-26] MEDS: VASOPRESSIN 20 UNITS in SODIUM CHL 0.9% 99 ML IV SCH (17:45)
[2023-01-26] MEDS: MIDAZOLAM DRIP 50 mg/50mL 50 ML IV SCH (18:30)
[2023-01-26 21:27] LABS: Eosinophils # (auto) 0.4 10 ^3/uL (0-0.8); Hemoglobin 9.2 g/dL (12.2-16.2); Monocytes # (auto) 0.8 10 ^3/uL (0-1.3)
[2023-01-26 21:29] LABS: Basophils # (auto) 0.1 10 ^3/uL (0-0.2); Basophils % (auto) 0.6 % (0.0-2.0); Eosinophils % (auto) 4.7 % (0.0-7.0); Hematocrit 29.7 % (36.0-46.0); Lymphocytes # (auto) 1.2 10 ^3/uL (0.4-5.4); Lymphocytes % (auto) 13.2 % (10.0-50.0); Mean Corpuscular Hgb Conc. 30.9 g/dL (32.0-36.0); Mean Corpuscular Volume 80.7 fL (80.0-100.0); Monocytes % (auto) 8.5 % (0.0-12.0); Neutrophils # (auto) 6.7 10 ^3/uL (1.6-8.6); Nucleated Red Blood Cells % 0.1 %; Red Blood Cells 3.68 10^6/uL (4.0-5.20); White Blood Cell 9.1 10^3/uL (4.4-10.8)
[2023-01-26 21:41] LABS: INR 1.16 (0.9-1.15)
[2023-01-26 21:42] LABS: Urine Amorphous Crystal FEW /hpf (None Seen); Urine Bacteria FEW /hpf (None Seen); Urine Blood 3+ /uL (Negative); Urine Specific Gravity 1.006 (1.001-1.035); Urine WBC <1 /hpf (0 - 5)
[2023-01-26 22:00] LABS: Albumin 1.4 g/dL (3.4-5.0); Calcium 8.5 mg/dL (8.5-10.1); Magnesium 2.5 mg/dL (1.6-2.6); Potassium 3.9 mmol/L (3.5-5.1)
[2023-01-26 22:09] LABS: BUN/Creatinine Ratio 14.3; Bilirubin, Direct 0.2 mg/dL (0-0.2); Bilirubin, Total 0.7 mg/dL (0.2-1.0); Phosphorus 3.9 mg/dL (2.5-4.90); Total Protein 4.5 g/dL (6.4-8.2)
[2023-01-27] VITALS (108 sets, daily range): BP systolic 88–183; BP diastolic -2–91
[2023-01-27] MEDS: DOPamine 1600MCG/ML D5W 250 ML IV SCH ×3 (00:18→22:20)
[2023-01-27] MEDS: D5W/SOD CHL 0.45% 1,000 ML IV SCH ×2 (02:30→15:42)
[2023-01-27] MEDS: NOREPINEPHRINE 8 MG/250ML KIT 250 ML IV SCH ×3 (02:30→15:44)
[2023-01-27 04:37] LABS: Urine Bacteria FEW /hpf (None Seen); Urine Blood 2+ /uL (Negative); Urine Specific Gravity 1.007 (1.001-1.035); Urine WBC 4 /hpf (0 - 5)
[2023-01-27 04:38] LABS: Basophils % (auto) 0.5 % (0.0-2.0); Hemoglobin 9.2 g/dL (12.2-16.2); Nucleated Red Blood Cells % 0.1 %
[2023-01-27 04:41] LABS: Basophils # (auto) 0.1 10 ^3/uL (0-0.2); Eosinophils # (auto) 0.4 10 ^3/uL (0-0.8); Eosinophils % (auto) 4.5 % (0.0-7.0); Hematocrit 29.5 % (36.0-46.0); Lymphocytes # (auto) 1.4 10 ^3/uL (0.4-5.4); Lymphocytes % (auto) 14.3 % (10.0-50.0); Mean Corpuscular Hemoglobin 25.6 pg (28.0-32.0); Mean Corpuscular Hgb Conc. 31.3 g/dL (32.0-36.0); Mean Corpuscular Volume 81.7 fL (80.0-100.0); Monocytes # (auto) 0.9 10 ^3/uL (0-1.3); Monocytes % (auto) 8.9 % (0.0-12.0); Neutrophils # (auto) 7.1 10 ^3/uL (1.6-8.6); Neutrophils % (auto) 71.8 % (37.0-80.0); Red Cell Distribution Width 18.9 % (11.8-14.3); White Blood Cell 9.9 10^3/uL (4.4-10.8)
[2023-01-27 04:48] LABS: INR 1.18 (0.9-1.15)
[2023-01-27 04:52] LABS: BUN/Creatinine Ratio 15.9; Calcium 8.9 mg/dL (8.5-10.1); Potassium 3.7 mmol/L (3.5-5.1)
[2023-01-27] MEDS: VASOPRESSIN 20 UNITS in SODIUM CHL 0.9% 99 ML IV SCH ×2 (04:52→15:59)
[2023-01-27 05:02] LABS: Albumin 1.4 g/dL (3.4-5.0); BUN/Creatinine Ratio 16.9; Bilirubin, Direct 0.2 mg/dL (0-0.2); Bilirubin, Total 0.4 mg/dL (0.2-1.0); Calcium 8.5 mg/dL (8.5-10.1); Magnesium 2.5 mg/dL (1.6-2.6); Phosphorus 4.3 mg/dL (2.5-4.90); Potassium 4.2 mmol/L (3.5-5.1); Total Protein 4.5 g/dL (6.4-8.2)
[2023-01-27] MEDS: CEFEPIME 2 GM in SODIUM CHL 0.9% 50 ML IV SCH ×2 (05:43→17:46)
[2023-01-27] MEDS ORDERED: SODIUM BICARBONATE 8.4 % INJ 50ML VIAL IV ONE ×2 (09:00→19:30)
[2023-01-27 09:35] LABS: Basophils # (auto) 0.1 10 ^3/uL (0-0.2); Basophils % (auto) 0.6 % (0.0-2.0); Eosinophils # (auto) 0.5 10 ^3/uL (0-0.8); Hemoglobin 9.3 g/dL (12.2-16.2); Lymphocytes # (auto) 1.4 10 ^3/uL (0.4-5.4); Monocytes # (auto) 0.9 10 ^3/uL (0-1.3); White Blood Cell 10.5 10^3/uL (4.4-10.8)
[2023-01-27 09:38] LABS: Eosinophils % (auto) 4.3 % (0.0-7.0); Hematocrit 30.6 % (36.0-46.0); Mean Corpuscular Hemoglobin 24.8 pg (28.0-32.0); Mean Corpuscular Hgb Conc. 30.5 g/dL (32.0-36.0); Mean Corpuscular Volume 81.4 fL (80.0-100.0); Monocytes % (auto) 8.7 % (0.0-12.0); Neutrophils # (auto) 7.7 10 ^3/uL (1.6-8.6); Neutrophils % (auto) 73.4 % (37.0-80.0); Nucleated Red Blood Cells % 0.1 %; Red Blood Cells 3.76 10^6/uL (4.0-5.20); Red Cell Distribution Width 18.6 % (11.8-14.3)
[2023-01-27 09:54] LABS: INR 1.17 (0.9-1.15); Partial Thromboplastin Time 37.4 sec (24.6-33.4)
[2023-01-27] MEDS: PANTOPRAZOLE 40 MG/10 ML VIAL INJ IV SCH (09:55)
[2023-01-27] MEDS: ENOXAPARIN SOD 40 MG/0.4 ML SYRINGE SC SCH ×2 (09:55→22:05)
[2023-01-27 10:01] LABS: Albumin 1.4 g/dL (3.4-5.0); BUN/Creatinine Ratio 15.5; Bilirubin, Direct 0.2 mg/dL (0-0.2); Bilirubin, Total 0.4 mg/dL (0.2-1.0); Magnesium 2.4 mg/dL (1.6-2.6); Phosphorus 4.5 mg/dL (2.5-4.90); Potassium 3.8 mmol/L (3.5-5.1); Total Protein 5.4 g/dL (6.4-8.2)
[2023-01-27 10:14] LABS: Urine Bacteria FEW /hpf (None Seen); Urine Specific Gravity 1.007 (1.001-1.035); Urine WBC 2 /hpf (0 - 5)
[2023-01-27 10:17] LABS: Urine Blood TRACE /uL (Negative)
[2023-01-27] MEDS: ALBUTEROL SULF 2.5 MG/0.5ML(0.5%) NEB SOLN NEB PRN ×2 (10:40→14:35)
[2023-01-27] MEDS ORDERED: FUROSEMIDE 20 MG/2 ML VIAL IV ONE (11:45)
[2023-01-27] MEDS ORDERED: POTASSIUM CHL 20MEQ/100ML 100 ML IV ONE (12:00)
[2023-01-27 15:24] LABS: Basophils # (auto) 0.1 10 ^3/uL (0-0.2); Basophils % (auto) 0.9 % (0.0-2.0); Hemoglobin 9.6 g/dL (12.2-16.2); Mean Corpuscular Volume 80.4 fL (80.0-100.0); Neutrophils # (auto) 8.9 10 ^3/uL (1.6-8.6); White Blood Cell 12.3 10^3/uL (4.4-10.8)
[2023-01-27 15:25] LABS: Eosinophils # (auto) 0.6 10 ^3/uL (0-0.8); Eosinophils % (auto) 4.6 % (0.0-7.0); Hematocrit 31.4 % (36.0-46.0); Lymphocytes # (auto) 1.6 10 ^3/uL (0.4-5.4); Lymphocytes % (auto) 13.1 % (10.0-50.0); Mean Corpuscular Hemoglobin 24.6 pg (28.0-32.0); Mean Corpuscular Hgb Conc. 30.6 g/dL (32.0-36.0); Monocytes # (auto) 1.1 10 ^3/uL (0-1.3); Monocytes % (auto) 9.2 % (0.0-12.0); Neutrophils % (auto) 72.2 % (37.0-80.0); Nucleated Red Blood Cells % 0.1 %; Red Blood Cells 3.91 10^6/uL (4.0-5.20); Red Cell Distribution Width 19.4 % (11.8-14.3)
[2023-01-27 15:30] LABS: Urine Amorphous Crystal FEW /hpf (None Seen); Urine Bacteria FEW /hpf (None Seen); Urine Blood 2+ /uL (Negative); Urine Mucus FEW (None Seen); Urine Specific Gravity 1.006 (1.001-1.035); Urine WBC 3 /hpf (0 - 5)
[2023-01-27 15:32] LABS: Albumin 1.5 g/dL (3.4-5.0); Magnesium 2.4 mg/dL (1.6-2.6)
[2023-01-27 15:36] LABS: BUN/Creatinine Ratio 14.7; Bilirubin, Direct 0.3 mg/dL (0-0.2); Bilirubin, Total 0.4 mg/dL (0.2-1.0); Phosphorus 3.9 mg/dL (2.5-4.90); Total Protein 5.6 g/dL (6.4-8.2)
[2023-01-27 16:01] LABS: INR 1.19 (0.9-1.15); Partial Thromboplastin Time 37.6 sec (24.6-33.4)
[2023-01-27] MEDS ORDERED: NOREPINEPHRINE BITARTRATE 32 MG in SODIUM CHL 0.9% 218 ML IV SCH (16:15)
[2023-01-27 17:50] LABS: Urine Bacteria FEW /hpf (None Seen); Urine Blood 2+ /uL (Negative); Urine Mucus FEW (None Seen); Urine Specific Gravity 1.007 (1.001-1.035); Urine WBC 3 /hpf (0 - 5)
[2023-01-27] MEDS: MIDAZOLAM DRIP 50 mg/50mL 50 ML IV SCH (18:25)
[2023-01-27] MEDS ORDERED: ACETAMINOPHEN 650 mg PER 20.3 mL UD GT PRN (20:00)
[2023-01-27 21:07] LABS: Eosinophils # (auto) 0.6 10 ^3/uL (0-0.8); Eosinophils % (auto) 4.4 % (0.0-7.0); Hemoglobin 9.7 g/dL (12.2-16.2); Lymphocytes # (auto) 1.7 10 ^3/uL (0.4-5.4); Monocytes # (auto) 1.2 10 ^3/uL (0-1.3); Nucleated Red Blood Cells % 0.1 %
[2023-01-27 21:09] LABS: Basophils # (auto) 0.1 10 ^3/uL (0-0.2); Hematocrit 31.3 % (36.0-46.0); Lymphocytes % (auto) 13.2 % (10.0-50.0); Mean Corpuscular Hemoglobin 24.8 pg (28.0-32.0); Mean Corpuscular Hgb Conc. 30.9 g/dL (32.0-36.0); Mean Corpuscular Volume 80.3 fL (80.0-100.0); Monocytes % (auto) 9.5 % (0.0-12.0); Neutrophils # (auto) 9.2 10 ^3/uL (1.6-8.6); Neutrophils % (auto) 71.9 % (37.0-80.0); Red Blood Cells 3.89 10^6/uL (4.0-5.20); Red Cell Distribution Width 19.1 % (11.8-14.3); White Blood Cell 12.8 10^3/uL (4.4-10.8)
[2023-01-27 21:21] LABS: Urine Bacteria FEW /hpf (None Seen); Urine Blood 2+ /uL (Negative); Urine Hyaline Cast FEW /lpf (0 - 2); Urine Mucus FEW (None Seen); Urine Specific Gravity 1.009 (1.001-1.035); Urine WBC 16 /hpf (0 - 5)
[2023-01-27 21:29] LABS: INR 1.22 (0.9-1.15)
[2023-01-27 21:34] LABS: Albumin 1.4 g/dL (3.4-5.0); BUN/Creatinine Ratio 15.5; Calcium 9.4 mg/dL (8.5-10.1); Magnesium 2.4 mg/dL (1.6-2.6); Potassium 3.9 mmol/L (3.5-5.1)
[2023-01-27 21:38] LABS: Bilirubin, Total 0.5 mg/dL (0.2-1.0); Phosphorus 4.3 mg/dL (2.5-4.90)
[2023-01-27 22:14] LABS: Bilirubin, Direct 0.3 mg/dL (0-0.2)
[2023-01-28] VITALS (73 sets, daily range): BP systolic 53–155; BP diastolic 32–82
[2023-01-28 01:45] LABS: INR 1.24 (0.9-1.15)
[2023-01-28 03:15] LABS: Basophils # (auto) 0.2 10 ^3/uL (0-0.2); Basophils % (auto) 1.2 % (0.0-2.0); Eosinophils # (auto) 0.6 10 ^3/uL (0-0.8); Eosinophils % (auto) 4.6 % (0.0-7.0); Hematocrit 31.4 % (36.0-46.0); Hemoglobin 9.6 g/dL (12.2-16.2); Lymphocytes # (auto) 1.9 10 ^3/uL (0.4-5.4); Lymphocytes % (auto) 14.2 % (10.0-50.0); Mean Corpuscular Hemoglobin 24.5 pg (28.0-32.0); Mean Corpuscular Hgb Conc. 30.4 g/dL (32.0-36.0); Mean Corpuscular Volume 80.6 fL (80.0-100.0); Monocytes # (auto) 1.4 10 ^3/uL (0-1.3); Monocytes % (auto) 10.4 % (0.0-12.0); Neutrophils # (auto) 9.5 10 ^3/uL (1.6-8.6); Neutrophils % (auto) 69.6 % (37.0-80.0); Nucleated Red Blood Cells % 0.1 %; Red Cell Distribution Width 19.2 % (11.8-14.3); White Blood Cell 13.7 10^3/uL (4.4-10.8)
[2023-01-28] MEDS: VASOPRESSIN 20 UNITS in SODIUM CHL 0.9% 99 ML IV SCH ×2 (03:24→12:34)
[2023-01-28 03:29] LABS: INR 1.25 (0.9-1.15); Partial Thromboplastin Time 37.9 sec (24.6-33.4)
[2023-01-28 03:34] LABS: Albumin 1.4 g/dL (3.4-5.0); BUN/Creatinine Ratio 13.7; Bilirubin, Direct 0.3 mg/dL (0-0.2); Magnesium 2.4 mg/dL (1.6-2.6)
[2023-01-28 03:38] LABS: Bilirubin, Total 0.4 mg/dL (0.2-1.0); Phosphorus 4.6 mg/dL (2.5-4.90); Total Protein 5.6 g/dL (6.4-8.2)
[2023-01-28 04:05] LABS: Urine Bacteria FEW /hpf (None Seen); Urine Blood 2+ /uL (Negative); Urine Hyaline Cast FEW /lpf (0 - 2); Urine Mucus FEW (None Seen); Urine Specific Gravity 1.014 (1.001-1.035); Urine WBC 7 /hpf (0 - 5)
[2023-01-28] MEDS: CEFEPIME 2 GM in SODIUM CHL 0.9% 50 ML IV SCH (05:52)
[2023-01-28] MEDS: DOPamine 1600MCG/ML D5W 250 ML IV SCH ×2 (08:51→12:34)
[2023-01-28 09:55] LABS: Monocytes # (auto) 1.4 10 ^3/uL (0-1.3); Red Cell Distribution Width 19.1 % (11.8-14.3)
[2023-01-28 09:58] LABS: Basophils # (auto) 0.2 10 ^3/uL (0-0.2); Basophils % (auto) 1.4 % (0.0-2.0); Eosinophils # (auto) 0.5 10 ^3/uL (0-0.8); Eosinophils % (auto) 4.3 % (0.0-7.0); Hematocrit 30.3 % (36.0-46.0); Hemoglobin 9.3 g/dL (12.2-16.2); Lymphocytes % (auto) 15.9 % (10.0-50.0); Mean Corpuscular Hemoglobin 24.6 pg (28.0-32.0); Mean Corpuscular Hgb Conc. 30.8 g/dL (32.0-36.0); Mean Corpuscular Volume 79.8 fL (80.0-100.0); Monocytes % (auto) 10.6 % (0.0-12.0); Neutrophils # (auto) 8.6 10 ^3/uL (1.6-8.6); Neutrophils % (auto) 67.8 % (37.0-80.0); Nucleated Red Blood Cells % 0.2 %; White Blood Cell 12.7 10^3/uL (4.4-10.8)
[2023-01-28] MEDS: PANTOPRAZOLE 40 MG/10 ML VIAL INJ IV SCH (09:58)
[2023-01-28] MEDS: ENOXAPARIN SOD 40 MG/0.4 ML SYRINGE SC SCH (09:58)
[2023-01-28] MEDS: D5W/SOD CHL 0.45% 1,000 ML IV SCH (09:59)
[2023-01-28] MEDS ORDERED: FUROSEMIDE 20 MG/2 ML VIAL IV SCH (10:00)
[2023-01-28 10:16] LABS: INR 1.31 (0.9-1.15); Partial Thromboplastin Time 37.2 sec (24.6-33.4)
[2023-01-28 10:45] LABS: Potassium 4.2 mmol/L (3.5-5.1)
[2023-01-28 10:53] LABS: Albumin 1.4 g/dL (3.4-5.0); BUN/Creatinine Ratio 14.4; Bilirubin, Direct 0.3 mg/dL (0-0.2); Bilirubin, Total 0.4 mg/dL (0.2-1.0); Calcium 9.2 mg/dL (8.5-10.1); Magnesium 2.5 mg/dL (1.6-2.6); Phosphorus 4.7 mg/dL (2.5-4.90); Total Protein 5.7 g/dL (6.4-8.2)
[2023-01-28] MEDS ORDERED: PHENYLEPHRINE INJ 80 MG in SODIUM CHL 0.9% 242 ML IV SCH (14:15)
[2023-01-28] MEDS ORDERED: SODIUM BICARBONATE 8.4 % INJ 50ML VIAL IV ONE (14:45)
[2023-01-28 15:24] LABS: Eosinophils # (auto) 0.7 10 ^3/uL (0-0.8); Hemoglobin 9.4 g/dL (12.2-16.2)
[2023-01-28 15:27] LABS: Basophils # (auto) 0.2 10 ^3/uL (0-0.2); Basophils % (auto) 1.2 % (0.0-2.0); Eosinophils % (auto) 5.1 % (0.0-7.0); Hematocrit 30.5 % (36.0-46.0); Lymphocytes # (auto) 2.1 10 ^3/uL (0.4-5.4); Lymphocytes % (auto) 15.8 % (10.0-50.0); Mean Corpuscular Hemoglobin 24.8 pg (28.0-32.0); Mean Corpuscular Hgb Conc. 30.7 g/dL (32.0-36.0); Mean Corpuscular Volume 80.8 fL (80.0-100.0); Monocytes # (auto) 1.4 10 ^3/uL (0-1.3); Monocytes % (auto) 10.7 % (0.0-12.0); Neutrophils # (auto) 8.8 10 ^3/uL (1.6-8.6); Neutrophils % (auto) 67.2 % (37.0-80.0); Nucleated Red Blood Cells % 0.1 %; Red Blood Cells 3.78 10^6/uL (4.0-5.20); Red Cell Distribution Width 19.2 % (11.8-14.3); White Blood Cell 13.1 10^3/uL (4.4-10.8)
[2023-01-28 15:34] LABS: Albumin 1.4 g/dL (3.4-5.0); BUN/Creatinine Ratio 13.8; Calcium 8.7 mg/dL (8.5-10.1); Magnesium 2.4 mg/dL (1.6-2.6); Potassium 4.5 mmol/L (3.5-5.1)
[2023-01-28 15:40] LABS: Bilirubin, Direct 0.2 mg/dL (0-0.2); Bilirubin, Total 0.6 mg/dL (0.2-1.0); Phosphorus 4.9 mg/dL (2.5-4.90); Total Protein 4.7 g/dL (6.4-8.2)
[2023-01-28 16:32] LABS: INR 1.34 (0.9-1.15); Partial Thromboplastin Time 40.3 sec (24.6-33.4)
[2023-01-28 22:02] LABS: INR 1.46 (0.9-1.15); Partial Thromboplastin Time 44.4 sec (24.6-33.4)
== END 2023-01-28 14:46 | DRG 870 ==
LOC: ER 14:04 → EDBD 14:04 → TELE 17:21 → ICU WEST 01-19 08:36
PROVIDERS: ADMIT Nurse Practitioner Family; ATTEND Internal Medicine
PROC: 5A1955Z Respiratory Ventilation, Greater than 96 Consecutive Hours (ICD-10-PCS; principal; 2023-01-16)
PROC: 0BH17EZ Insertion of Endotracheal Airway into Trachea, Via Natural or Artificial Opening (ICD-10-PCS; 2023-01-16)
PROC: 06HM33Z Insertion of Infusion Device into Right Femoral Vein, Percutaneous Approach (ICD-10-PCS; 2023-01-16)
PROC: 5A12012 Performance of Cardiac Output, Single, Manual (ICD-10-PCS; 2023-01-16)
PROC: 03HY32Z Insertion of Monitoring Device into Upper Artery, Percutaneous Approach (ICD-10-PCS; 2023-01-25)
DX: A41.9 Sepsis, unspecified organism (principal); G93.41 Metabolic encephalopathy; J96.01 Acute respiratory failure with hypoxia; K72.00 Acute and subacute hepatic failure without coma; J69.0 Pneumonitis due to inhalation of food and vomit; N17.0 Acute kidney failure with tubular necrosis; R65.21 Severe sepsis with septic shock; E87.1 Hypo-osmolality and hyponatremia; G93.1 Anoxic brain damage, not elsewhere classified; E44.0 Moderate protein-calorie malnutrition; E87.0 Hyperosmolality and hypernatremia; N39.0 Urinary tract infection, site not specified; Z68.43 Body mass index [BMI] 50.0-59.9, adult; Z66 Do not resuscitate; I46.9 Cardiac arrest, cause unspecified; R79.89 Other specified abnormal findings of blood chemistry; E66.01 Morbid (severe) obesity due to excess calories; G25.3 Myoclonus; I11.9 Hypertensive heart disease without heart failure; E87.6 Hypokalemia; I48.0 Paroxysmal atrial fibrillation; R73.03 Prediabetes; Z20.822 Contact with and (suspected) exposure to COVID-19; Z87.19 Personal history of other diseases of the digestive system; Z88.0 Allergy status to penicillin; Z79.01 Long term (current) use of anticoagulants; Z93.3 Colostomy status
CPT/HCPCS: 31500; 36415; 36556; 36600; 70450; 71045; 71275; 72125; 76604; 76705; 80048; 80053; 80061; 80069; 80162; 80202; 80307; 80320; 81001; 81003; 82150; 82248; 82570; 82805; 82962; 82977; 83036; 83605; 83615; 83690; 83735; 83930; 83935; 84100; 84156; 84295; 84300; 84443; 84484; 85007; 85025; 85027; 85379; 85610; 85730; 86850; 86900; 86901; 87040; 87070; 87081; 87086; 87205; 87426; 93005; 93306; 94002; 94003; 94640; 95819; 96365; 96368; 96375; 99291; C9113; G0378; J0171; J1956; J2250; J3480; J7060

== ENCOUNTER 2023-01-28 14:46 | Inpatient (IN) | payer OTHER ==
[~2023-01-28] VITALS: Ht 170 cm; Wt 143.4 kg
[2023-01-28] VITALS (33 sets, daily range): BP systolic 92–237; BP diastolic 49–194
[~2023-01-28 14:46] MED LIST: AMIO200T33 PO; CARV12.544 PO; DIGO0.25 PO; LISI20TA28 PO; SPIR25TA8 PO
[2023-01-28] MEDS ORDERED: HETASTARCH 500 ML IV ONE ×2 (16:45)
[2023-01-28] MEDS: NOREPINEPHRINE BITARTRATE 32 MG in SODIUM CHL 0.9% 218 ML IV SCH (17:37)
[2023-01-28] MEDS: VASOPRESSIN 20 UNITS in SODIUM CHL 0.9% 99 ML IV SCH (17:37)
[2023-01-28] MEDS: DOBUTamine 1000MCG/ML 250 ML IV SCH (17:48)
[2023-01-28] MEDS: ACCU-CHEK COMFORT CURVE STRIP VI SCH ×3 (18:01→22:09)
[2023-01-28] MEDS ORDERED: SODIUM BICARBONATE 8.4 % INJ 50ML VIAL IV ONE (20:00)
[2023-01-28] MEDS: EPINEPHrine HCL 250 ML IV SCH (21:00)
[2023-01-28] MEDS ORDERED: methylPREDNISolone SOD SUCC 125 MG/2 ML VL IV ONE (21:00)
[2023-01-28] MEDS ORDERED: THIAMINE 100mg/ml INJ (200mg/2ml VIAL) IV ONE (21:00)
[2023-01-28] MEDS ORDERED: SODIUM BICARBONATE 8.4 % INJ 50ML VIAL IV STA (21:19)
[2023-01-28] MEDS ORDERED: VANCOMYCIN 1GM/250ML 250 ML IV ONE (22:00)
[2023-01-28] MEDS: cefEPIME 1gm INJ VIAL IM SCH (23:03)
[2023-01-29] VITALS (96 sets, daily range): BP systolic 89–137; BP diastolic 56–94
[2023-01-29] MEDS: ACCU-CHEK COMFORT CURVE STRIP VI SCH ×12 (00:18→22:17)
[2023-01-29 00:24] LABS: Basophils # (auto) 0.1 10 ^3/uL (0-0.2); Hematocrit 25.2 % (36.0-46.0); Mean Corpuscular Volume 80.2 fL (80.0-100.0); Monocytes # (auto) 0.7 10 ^3/uL (0-1.3); Monocytes % (auto) 6.8 % (0.0-12.0); Nucleated Red Blood Cells % 0.1 %; Red Cell Distribution Width 19.3 % (11.8-14.3)
[2023-01-29 00:25] LABS: Basophils % (auto) 0.8 % (0.0-2.0); Eosinophils # (auto) 0.3 10 ^3/uL (0-0.8); Eosinophils % (auto) 2.7 % (0.0-7.0); Hemoglobin 7.9 g/dL (12.2-16.2); Lymphocytes # (auto) 0.9 10 ^3/uL (0.4-5.4); Mean Corpuscular Hemoglobin 25.3 pg (28.0-32.0); Mean Corpuscular Hgb Conc. 31.5 g/dL (32.0-36.0); Neutrophils # (auto) 8.1 10 ^3/uL (1.6-8.6); Neutrophils % (auto) 80.7 % (37.0-80.0); Red Blood Cells 3.14 10^6/uL (4.0-5.20)
[2023-01-29 00:29] LABS: Urine Bacteria FEW /hpf (None Seen); Urine Blood 2+ /uL (Negative); Urine Specific Gravity 1.021 (1.001-1.035); Urine WBC 24 /hpf (0 - 5)
[2023-01-29 00:40] LABS: INR 1.43 (0.9-1.15)
[2023-01-29 01:00] LABS: Albumin 1.1 g/dL (3.4-5.0); Calcium 8.4 mg/dL (8.5-10.1); Magnesium 2.3 mg/dL (1.6-2.6)
[2023-01-29] MEDS: VASOPRESSIN 20 UNITS in SODIUM CHL 0.9% 99 ML IV SCH ×4 (01:35→23:45)
[2023-01-29 01:40] LABS: BUN/Creatinine Ratio 14.2; Bilirubin, Direct 0.4 mg/dL (0-0.2); Bilirubin, Total 0.7 mg/dL (0.2-1.0); Phosphorus 4.7 mg/dL (2.5-4.90); Potassium 4.4 mmol/L (3.5-5.1); Total Protein 4.6 g/dL (6.4-8.2)
[2023-01-29] MEDS ORDERED: FUROSEMIDE 100 MG/10ML VIAL IV STA (02:07)
[2023-01-29] MEDS ORDERED: ALBUMIN 25% 100 ML IV STA (02:07)
[2023-01-29] MEDS ORDERED: metOLazone 5 MG TAB PO STA (02:07)
[2023-01-29] MEDS ORDERED: InsuLIN R (HUMAN) 100 UNITS in SODIUM CHL 0.9% 99 ML IV SCH (02:30)
[2023-01-29] MEDS: THIAMINE 100mg/ml INJ (200mg/2ml VIAL) IV SCH ×3 (04:55→21:01)
[2023-01-29] MEDS: methylPREDNISolone SOD SUCC 125 MG/2 ML VL IV SCH ×3 (04:56→21:01)
[2023-01-29] MEDS ORDERED: DOPamine 1600MCG/ML D5W 250 ML IV STA ×2 (05:04→22:21)
[2023-01-29 05:57] LABS: Basophils # (auto) 0.1 10 ^3/uL (0-0.2); Eosinophils # (auto) 0 10 ^3/uL (0-0.8); Eosinophils % (auto) 0.2 % (0.0-7.0); Hemoglobin 7.6 g/dL (12.2-16.2); Lymphocytes # (auto) 0.6 10 ^3/uL (0.4-5.4); Monocytes # (auto) 0.1 10 ^3/uL (0-1.3); Neutrophils # (auto) 8.2 10 ^3/uL (1.6-8.6); Nucleated Red Blood Cells % 0.1 %
[2023-01-29 06:01] LABS: Basophils % (auto) 0.9 % (0.0-2.0); Hematocrit 23.9 % (36.0-46.0); Lymphocytes % (auto) 6.5 % (10.0-50.0); Mean Corpuscular Hemoglobin 25.3 pg (28.0-32.0); Mean Corpuscular Hgb Conc. 31.7 g/dL (32.0-36.0); Mean Corpuscular Volume 79.9 fL (80.0-100.0); Monocytes % (auto) 1.6 % (0.0-12.0); Neutrophils % (auto) 90.8 % (37.0-80.0); Red Blood Cells 2.99 10^6/uL (4.0-5.20); Red Cell Distribution Width 18.8 % (11.8-14.3)
[2023-01-29 06:30] LABS: Urine Bacteria FEW /hpf (None Seen); Urine Blood 3+ /uL (Negative); Urine Hyaline Cast FEW /lpf (0 - 2); Urine Mucus FEW (None Seen); Urine Specific Gravity 1.019 (1.001-1.035); Urine WBC 46 /hpf (0 - 5); Urine WBC Clumps PRESENT /hpf (None Seen)
[2023-01-29 06:34] LABS: Albumin 1.6 g/dL (3.4-5.0); BUN/Creatinine Ratio 14.1; Bilirubin, Direct 0.4 mg/dL (0-0.2); Calcium 8.4 mg/dL (8.5-10.1); Magnesium 2.4 mg/dL (1.6-2.6); Phosphorus 5.7 mg/dL (2.5-4.90); Potassium 4.5 mmol/L (3.5-5.1); Total Protein 5.2 g/dL (6.4-8.2)
[2023-01-29 06:38] LABS: Bilirubin, Total 0.6 mg/dL (0.2-1.0)
[2023-01-29] MEDS: cefEPIME 1gm INJ VIAL IM SCH ×3 (06:45→23:00)
[2023-01-29 06:53] LABS: INR 1.46 (0.9-1.15)
[2023-01-29] MEDS ORDERED: FUROSEMIDE 100 MG/10ML VIAL IV ONE (09:15)
[2023-01-29] MEDS: InsuLIN R (HUMAN) 100 UNITS in SODIUM CHL 0.9% 99 ML IV SCH (10:20)
[2023-01-29 12:13] LABS: Eosinophils # (auto) 0 10 ^3/uL (0-0.8); Hematocrit 24.2 % (36.0-46.0); Lymphocytes # (auto) 0.9 10 ^3/uL (0.4-5.4); Neutrophils # (auto) 8.8 10 ^3/uL (1.6-8.6); Nucleated Red Blood Cells % 0.1 %; Red Blood Cells 3.01 10^6/uL (4.0-5.20); Red Cell Distribution Width 19.5 % (11.8-14.3); White Blood Cell 9.9 10^3/uL (4.4-10.8)
[2023-01-29 12:15] LABS: Basophils # (auto) 0.1 10 ^3/uL (0-0.2); Basophils % (auto) 0.7 % (0.0-2.0); Hemoglobin 7.5 g/dL (12.2-16.2); Lymphocytes % (auto) 9.3 % (10.0-50.0); Mean Corpuscular Hemoglobin 24.9 pg (28.0-32.0); Mean Corpuscular Hgb Conc. 31.1 g/dL (32.0-36.0); Mean Corpuscular Volume 80.2 fL (80.0-100.0); Monocytes # (auto) 0.1 10 ^3/uL (0-1.3); Monocytes % (auto) 1.4 % (0.0-12.0); Neutrophils % (auto) 88.6 % (37.0-80.0)
[2023-01-29 12:22] LABS: INR 1.46 (0.9-1.15); Partial Thromboplastin Time 43.3 sec (24.6-33.4)
[2023-01-29 13:11] LABS: Albumin 1.6 g/dL (3.4-5.0); BUN/Creatinine Ratio 13.9; Bilirubin, Direct 0.2 mg/dL (0-0.2); Bilirubin, Total 0.4 mg/dL (0.2-1.0); Magnesium 2.4 mg/dL (1.6-2.6); Phosphorus 4.3 mg/dL (2.5-4.90); Potassium 4.1 mmol/L (3.5-5.1); Total Protein 4.5 g/dL (6.4-8.2)
[2023-01-29 16:36] LABS: Urine Bacteria NONE SEEN /hpf (None Seen); Urine Blood 3+ /uL (Negative); Urine Specific Gravity 1.013 (1.001-1.035); Urine WBC 5 /hpf (0 - 5)
[2023-01-29] MEDS: NOREPINEPHRINE BITARTRATE 32 MG in SODIUM CHL 0.9% 218 ML IV SCH (17:15)
[2023-01-29 18:23] LABS: Eosinophils # (auto) 0 10 ^3/uL (0-0.8); Hemoglobin 7.3 g/dL (12.2-16.2); Lymphocytes % (auto) 9.7 % (10.0-50.0)
[2023-01-29 18:25] LABS: Basophils # (auto) 0.1 10 ^3/uL (0-0.2); Basophils % (auto) 0.5 % (0.0-2.0); Hematocrit 23.3 % (36.0-46.0); Mean Corpuscular Hemoglobin 24.8 pg (28.0-32.0); Mean Corpuscular Hgb Conc. 31.3 g/dL (32.0-36.0); Mean Corpuscular Volume 79.3 fL (80.0-100.0); Monocytes # (auto) 0.2 10 ^3/uL (0-1.3); Monocytes % (auto) 2.3 % (0.0-12.0); Neutrophils # (auto) 9.1 10 ^3/uL (1.6-8.6); Neutrophils % (auto) 87.5 % (37.0-80.0); Red Blood Cells 2.94 10^6/uL (4.0-5.20); Red Cell Distribution Width 19.1 % (11.8-14.3); White Blood Cell 10.5 10^3/uL (4.4-10.8)
[2023-01-29 18:31] LABS: Urine Bacteria NONE SEEN /hpf (None Seen); Urine Blood 3+ /uL (Negative); Urine Specific Gravity 1.014 (1.001-1.035); Urine WBC 3 /hpf (0 - 5)
[2023-01-29] MEDS: DOBUTamine 1000MCG/ML 250 ML IV SCH (18:34)
[2023-01-29 18:45] LABS: Albumin 1.6 g/dL (3.4-5.0); BUN/Creatinine Ratio 15.1; Bilirubin, Direct 0.2 mg/dL (0-0.2); Calcium 8.7 mg/dL (8.5-10.1); Magnesium 2.5 mg/dL (1.6-2.6); Phosphorus 4.2 mg/dL (2.5-4.90); Total Protein 5.2 g/dL (6.4-8.2)
[2023-01-29 18:48] LABS: Bilirubin, Total 0.4 mg/dL (0.2-1.0)
[2023-01-29 18:54] LABS: INR 1.46 (0.9-1.15); Partial Thromboplastin Time 44.3 sec (24.6-33.4)
[2023-01-29] MEDS: EPINEPHrine HCL 250 ML IV SCH (21:00)
[2023-01-29] MEDS ORDERED: DOPamine 1600MCG/ML D5W 250 ML IV SCH (23:15)
[2023-01-30] VITALS (41 sets, daily range): BP systolic 97–139; BP diastolic 65–82
[2023-01-30] MEDS: ACCU-CHEK COMFORT CURVE STRIP VI SCH ×5 (00:01→08:34)
[2023-01-30 00:49] LABS: Basophils # (auto) 0 10 ^3/uL (0-0.2); Eosinophils # (auto) 0 10 ^3/uL (0-0.8); Hemoglobin 7.5 g/dL (12.2-16.2); Lymphocytes # (auto) 0.9 10 ^3/uL (0.4-5.4); Mean Corpuscular Hemoglobin 25.1 pg (28.0-32.0); Mean Corpuscular Hgb Conc. 31.5 g/dL (32.0-36.0); Neutrophils # (auto) 9.1 10 ^3/uL (1.6-8.6); Nucleated Red Blood Cells % 0.1 %; White Blood Cell 10.3 10^3/uL (4.4-10.8)
[2023-01-30 00:51] LABS: Basophils % (auto) 0.3 % (0.0-2.0); Eosinophils % (auto) 0.1 % (0.0-7.0); Lymphocytes % (auto) 8.6 % (10.0-50.0); Mean Corpuscular Volume 79.9 fL (80.0-100.0); Monocytes # (auto) 0.2 10 ^3/uL (0-1.3); Monocytes % (auto) 2.2 % (0.0-12.0); Neutrophils % (auto) 88.8 % (37.0-80.0); Red Cell Distribution Width 19.3 % (11.8-14.3)
[2023-01-30 01:09] LABS: Urine Bacteria FEW /hpf (None Seen); Urine Blood 3+ /uL (Negative); Urine Budding Yeast FEW /hpf (None Seen); Urine Hyaline Cast FEW /lpf (0 - 2); Urine Specific Gravity 1.017 (1.001-1.035); Urine WBC 15 /hpf (0 - 5)
[2023-01-30 01:16] LABS: INR 1.44 (0.9-1.15); Partial Thromboplastin Time 41.8 sec (24.6-33.4)
[2023-01-30 01:18] LABS: Albumin 1.6 g/dL (3.4-5.0); BUN/Creatinine Ratio 14.9; Bilirubin, Direct 0.2 mg/dL (0-0.2); Bilirubin, Total 0.4 mg/dL (0.2-1.0); Calcium 8.7 mg/dL (8.5-10.1); Magnesium 2.6 mg/dL (1.6-2.6); Phosphorus 4.5 mg/dL (2.5-4.90); Potassium 4.2 mmol/L (3.5-5.1); Total Protein 5.6 g/dL (6.4-8.2)
[2023-01-30] MEDS ORDERED: DOBUTamine 1000MCG/ML 250 ML IV PRN (01:45)
[2023-01-30] MEDS: THIAMINE 100mg/ml INJ (200mg/2ml VIAL) IV SCH (04:52)
[2023-01-30] MEDS: methylPREDNISolone SOD SUCC 125 MG/2 ML VL IV SCH (04:53)
[2023-01-30 05:48] LABS: Basophils # (auto) 0 10 ^3/uL (0-0.2); Eosinophils # (auto) 0 10 ^3/uL (0-0.8); Hemoglobin 7.6 g/dL (12.2-16.2); Lymphocytes # (auto) 0.8 10 ^3/uL (0.4-5.4); Red Blood Cells 3.01 10^6/uL (4.0-5.20)
[2023-01-30 05:50] LABS: Basophils % (auto) 0.3 % (0.0-2.0); Lymphocytes % (auto) 7.7 % (10.0-50.0); Mean Corpuscular Hemoglobin 25.3 pg (28.0-32.0); Mean Corpuscular Hgb Conc. 31.8 g/dL (32.0-36.0); Mean Corpuscular Volume 79.7 fL (80.0-100.0); Monocytes # (auto) 0.3 10 ^3/uL (0-1.3); Monocytes % (auto) 2.5 % (0.0-12.0); Neutrophils # (auto) 8.9 10 ^3/uL (1.6-8.6); Neutrophils % (auto) 89.5 % (37.0-80.0); Nucleated Red Blood Cells % 0.2 %; Red Cell Distribution Width 19.6 % (11.8-14.3); White Blood Cell 9.9 10^3/uL (4.4-10.8)
[2023-01-30 06:02] LABS: INR 1.46 (0.9-1.15); Partial Thromboplastin Time 41.3 sec (24.6-33.4)
[2023-01-30 06:11] LABS: Albumin 1.7 g/dL (3.4-5.0); BUN/Creatinine Ratio 14.8; Bilirubin, Direct 0.2 mg/dL (0-0.2); Bilirubin, Total 0.4 mg/dL (0.2-1.0); Calcium 8.7 mg/dL (8.5-10.1); Magnesium 2.7 mg/dL (1.6-2.6); Phosphorus 4.7 mg/dL (2.5-4.90); Potassium 4.2 mmol/L (3.5-5.1); Total Protein 5.7 g/dL (6.4-8.2)
[2023-01-30] MEDS: cefEPIME 1gm INJ VIAL IM SCH (06:34)
[2023-01-30] MEDS: InsuLIN R (HUMAN) 100 UNITS in SODIUM CHL 0.9% 99 ML IV SCH (08:15)
[2023-01-30] MEDS: VASOPRESSIN 20 UNITS in SODIUM CHL 0.9% 99 ML IV SCH (08:37)
[2023-01-30] MEDS ORDERED: MANNITOL FTV 25% 12.5 GM/50 ML 50 ML IV ONE ×2 (10:24→10:25)
[2023-01-30] MEDS ORDERED: FUROSEMIDE 20 MG/2 ML VIAL ONE (10:25)
[2023-01-30] MEDS ORDERED: LORazepam 2MG/ML-1ML VIAL ONE (15:14)
== END 2023-01-30 15:20 | DRG 871 ==
LOC: ICU WEST 14:46
PROVIDERS: ADMIT Internal Medicine; ATTEND Internal Medicine
DX: A41.9 Sepsis, unspecified organism (principal); J69.0 Pneumonitis due to inhalation of food and vomit; J96.00 Acute respiratory failure, unspecified whether with hypoxia or hypercapnia; N17.0 Acute kidney failure with tubular necrosis; R65.21 Severe sepsis with septic shock; Z68.42 Body mass index [BMI] 45.0-49.9, adult; E87.1 Hypo-osmolality and hyponatremia; G93.1 Anoxic brain damage, not elsewhere classified; R57.9 Shock, unspecified; E66.01 Morbid (severe) obesity due to excess calories; I10 Essential (primary) hypertension; I48.91 Unspecified atrial fibrillation; K72.90 Hepatic failure, unspecified without coma
CPT/HCPCS: 36415; 36600; 71045; 80053; 80202; 81001; 82150; 82248; 82805; 82962; 82977; 83615; 83690; 83735; 83930; 84100; 85025; 85610; 85730; 94003; G0378; J0171; J1642; J1815; J7060; P9047